=== PATIENT | female | born 1945 | race Caucasian/White ===

== ENCOUNTER → 2017-01-31 | Outpatient (CLI) | payer OTHER ==
[~2017-01-31] MED LIST: ALTOPREV40 MG PO; AZITHROMYCIN250 MG PO; BENZONATATE PO; CITALOPRAM HBR40 MG PO; COLACE PO; COMBIVENT RESPIM4 GM IH; DIPHENHYDRAMINE50 M1 PO; EFFEXOR XR150 MG PO; EFFEXOR XR75 MG PO; EFFEXOR-XR150 MG PO; GABAPENTIN300 M2 PO; HUMALOG100 U/M2 SQ; HUMALOG100 U/M2 SUBQ; HUMALOG100 U/ML SUBQ; LEVEMIR FL100 UNIT/1 SQ; LEVEMIR SUBQ; LEVEMIR100 UNITS/; LEVEMIR100 UNITS/ SUBQ; LISINOPRIL10 MG PO; LISINOPRIL5 MG PO; LOVASTATIN10 MG PO; MEVACOR PO; MILK OF MAGNESIA PO; NEURONTIN300 MG PO; NEURONTIN600 MG PO; NICOTINE TRANSD14 MG TD; NORCO 5/325 TAB1 TAB PO; NOVOLOG100 U/M3; NOVOLOG100 U/ML SUBQ; PRAVACHOL10 MG PO; PREDNISONE PO; PROAIR HFA8.5 GM IH; PROAIR HFA8.5 GM INH; SYMBICORT INH; [UNRECOGNIZED DRUG - OTHER] SUBQ
--- NOTE | ~2017-01-31 | CT137 ---
[facility] A Service of [facility] RADIOLOGY TEXT RESULTS PATIENT: ANDREW FRANCISCO LOCATION: [facility] : 49 UNIT #: [id number] AGE: [address]: Twila Bradshaw MD SEX: F ORDER DR: [id number] [place], [place] [address] [id number] O MR#: [id number] Acc #: [id number] NAME: ANDREW FRANCISCO : 1945 SEX: F STUDY DATE/TIME: 01/31/2017 9:47 UNIT: [facility] ROOM: STUDY DESCRIPTION: CT Lung Screening annual Attending Physician: Twila Bradshaw M.D. Referring Physician: Twila Bradshaw M.D. Ordering Physician: Twila Bradshaw M.D. Primary Care Physician: Twila Bradshaw M.D. MEDICAL IMAGING REPORT This report is preliminary unless electronic signature is present EXAM CT lung cancer screening. INDICATIONS Lung cancer screening, 55 pack year smoking history. PROCEDURE Unenhanced low-dose CT of the chest performed per lung cancer screening protocol. CTDI 3 mGy Total DLP 123 mGy-cm. This CT exam was performed with one or more of the following radiation dose reduction techniques: automatic exposure control, adjustment of mA and/or kV according to patient size, and iterative reconstruction. COMPARISON 01/12/2016 FINDINGS Approximately 3 mm ground-glass nodule in the left lower lobe is unchanged. 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 No new or suspicious pulmonary nodules. Coronary artery calcification. Small hiatal hernia. No acute findings in the included upper abdomen. No aggressive appearing bone lesion. IMPRESSION 1. Benign lung cancer screening. 2. Stable subpleural scarring/fibrosis. 3. Other incidental findings as above. 4. Lung-RADS category 2 benign findings. Per ACR Lung-RADS recommendation, suggest patient continue with annual low-dose lung cancer screening. [facility] A Service [facility] RADIOLOGY TEXT RESULTS PATIENT: ANDREW FRANCISCO [id number] : 49 UNIT #: [id number] AGE: [address]: Twila Bradshaw MD SEX: F ORDER DR: Dictated by... Arturo Last M.D. THIS IS AN ELECTRONICALLY VERIFIED REPORT Arturo Last M.D. at 02/01/2017 7:11 AM VIOLETTE/maryan TD: 01/31/2017 15:59 JOB #: [id number] MEDICAL IMAGING REPORT Page 1 of 1 COPY
== END | disposition home or self-care (01) ==
LOC: CCAT 09:00
DX: Z87.891 Personal history of nicotine dependence (principal)
CPT/HCPCS: G0297

== ENCOUNTER → 2017-03-21 | Outpatient (CLI) | payer OTHER ==
--- NOTE | ~2017-03-21 | MY29 ---
[facility] A Service of [facility] RADIOLOGY TEXT RESULTS PATIENT: ANDREW FRANCISCO [facility] : 49 UNIT #: [id number] AGE: [address]: Twila Bradshaw MD SEX: F ORDER DR: [id number] [facility]. [place], [place] [address] [id number] O MR#: [id number] Acc #: [id number] NAME: ANDREW FRANCISCO : 1945 SEX: F STUDY DATE/TIME: 03/21/2017 12:01 [facility] ROOM: STUDY DESCRIPTION: MY ANURAG SCREENING W/ CAD BILAT Attending Physician: Twila Bradshaw M.D. Referring Physician: Twila Bradshaw M.D. Ordering Physician: Twila Bradshaw M.D. Primary Care Physician: Twila Bradshaw M.D. MEDICAL IMAGING REPORT This report is preliminary unless electronic signature is present EXAM Bilateral Digital Screening Mammogram with CAD INDICATION Breast cancer screening. 71-year-old asymptomatic female presents for breast cancer screening. Patient denies family history of breast cancer. COMPARISON 01/12/2016, 11/28/2014, 05/09/2013, 11/18/2006. FINDINGS The breasts are almost entirely fatty. No suspicious findings are present. IMPRESSION No mammographic evidence of malignancy. Annual screening mammography and clinical breast exam are recommended. A result letter will be sent to the patient. Patients over the age of 40 are entered into a reminder system with target due date for the next mammogram. BIRADS: 1 Negative Dictated by... Saji Joya M.D. THIS IS AN ELECTRONICALLY VERIFIED REPORT Saji Joya M.D. at 03/29/2017 2:47 AM BLM/pcl TD: 03/21/2017 21:46 [facility] A Service [facility] RADIOLOGY TEXT RESULTS PATIENT: ANDREW FRANCISCO [id number] 49 UNIT #: [id number] AGE: [address]: Twila Bradshaw MD SEX: F ORDER DR: JOB #: [id number] MEDICAL IMAGING REPORT Page 1 of 1 COPY
== END | disposition home or self-care (01) ==
LOC: CWCC 11:15
DX: Z12.31 Encounter for screening mammogram for malignant neoplasm of breast (principal)
CPT/HCPCS: G0202

== ENCOUNTER 2017-04-03 15:12 | Emergency (ER) | payer OTHER ==
[2017-04-03 16:19] LABS: BASOPHIL% 0.2 % (0-2.5); HEMATOCRIT 36.2 % (35.0-45.0); HEMOGLOBIN 12.3 gm/dL (12.0-16.0); LYMPHOCYTE# 1.4 X10e3 (1.0-3.5); LYMPHOCYTE% 16.9 % (17.0-45.0); MEAN CELL VOLUME 92.4 FL (83-96); MEAN CORPUSCULAR HEMOGLOBIN 31.4 PG (28-34); MEAN PLATELET VOLUME 7.6 FL (6.5-11.5); MONOCYTE# 0.8 X10e3 (0-1.0); MONOCYTE% 9.4 % (3.0-12.0); NEUTROPHIL# 6.1 X10e3 (1.5-7.1); NEUTROPHIL% 73.5 % (40-75); PLATELET COUNT 315 X10e3 (140-420); RED BLOOD COUNT 3.92 X10e (3.90-5.30); RED CELL DISTRIBUTION WIDTH 14.3 % (11.0-15.5); WHITE BLOOD COUNT 8.3 X10e3 (4.0-10.5)
[2017-04-03 16:24] LABS: DIFF IND NO
[2017-04-03 16:29] LABS: POC - CKMB 1.1 ng/mL (0.0-7.9); POC - TROPONIN <0.05 ng/mL (<=0.05)
[2017-04-03 16:42] LABS: BUN/CREATININE RATIO 12.72; CALCIUM SERUM 9.1 mg/dL (8.4-10.2); CREATININE SERUM 1.1 mg/dL (0.6-1.4); GLOM FILT RATE Estimated 51.2 mL/min (>60)
[2017-04-03 16:51] LABS: URINE SOURCE CLEAN CATCH
[2017-04-03 16:56] LABS: URINE APPEARANCE CLEAR; URINE BILIRUBIN NEG (NEG); URINE BLOOD NEG (NEG); URINE COLOR YELLOW; URINE GLUCOSE NEG (NEG); URINE KETONE NEG (NEG); URINE LEUKOCYTE ESTERASE TRACE (NEG); URINE NITRATE NEG (NEG); URINE PROTEIN NEG (NEG); URINE SPECIFIC GRAVITY 1.006 (1.003-1.035); URINE UROBILINOGEN 0.2 MG/DL (NEG)
[2017-04-03 16:59] LABS: CULTURE INDICATED? NO; URBCS1 AUWI 0-2 /[HPF] (0-2); URINE BACTERIA AUWI NEG (NEGATIVE); URINE SQUAMOUS EPITHELIAL CELL NONE SEEN /[HPF]; UWBCS1 AUWI 0-2 (0-5)
== END 2017-04-03 19:18 | disposition home or self-care (01) ==
LOC: CED 15:12
PROVIDERS: Emergency Medicine
DX: E11.65 Type 2 diabetes mellitus with hyperglycemia (principal); E78.5 Hyperlipidemia, unspecified; I10 Essential (primary) hypertension; Z90.710 Acquired absence of both cervix and uterus; Z90.49 Acquired absence of other specified parts of digestive tract; Z98.890 Other specified postprocedural states; Z88.8 Allergy status to other drugs, medicaments and biological substances
CPT/HCPCS: 36415; 80048; 81003; 82553; 82947; 84484; 85025; 96374; 99285